=== PATIENT | male | born 1990 | race Caucasian/White ===

== ENCOUNTER 2022-01-24 23:57 | Emergency (ER) | payer MEDICAID ==
[~2022-01-24] VITALS: Ht 172.7 cm; Wt 77.0 kg
[2022-01-25] MEDS ORDERED: DIPHENHYDRAMINE 50MG/ML VIAL IM STA (00:23)
[2022-01-25] MEDS ORDERED: HALOPERIDOL LACTATE 5MG/ML VIAL IM STA (00:23)
[2022-01-25 00:37] LABS: BASOPHILS % 0.5 % (0.0-2.0); EOSINOPHILS % 1.3 % (0.0-5.0); HEMATOCRIT. 45.3 % (42.0-52.0); HEMOGLOBIN. 15.2 g/dL (14.0-18.0); LYMPHOCYTES % 27.2 % (20.0-50.0); MEAN CORPUSCULAR HEMOGLOBIN 28.7 pg (28.0-32.0); MEAN CORPUSCULAR VOLUME 85.8 fL (80.0-94.0); MEAN PLATELET VOLUME 8.6 fl (7.4-10.4); MONOCYTES % 5.9 % (2.0-8.0); NEUTROPHILS % 65.1 % (40.0-76.0); PLATELET 245 x1000/uL (130-400); RED BLOOD CELL COUNT 5.29 mill/uL (4.7-6.1); RED CELL DISTRIBUTION WIDTH 14.4 % (11.6-14.6)
[2022-01-25 00:49] LABS: CHLORIDE 109 mEq/L (98-107)
[2022-01-25 01:01] LABS: ETHANOL BLOOD 383 mg/dL
[2022-01-25 10:00] VITALS: BP 107/63
== END 2022-01-25 10:40 | disposition home or self-care (01) ==
LOC: ER 01-25 00:18
DX: F10.129 Alcohol abuse with intoxication, unspecified (principal); Y90.0 Blood alcohol level of less than 20 mg/100 ml
CPT/HCPCS: 36415; 70450; 80053; 80320; 85025; 93005; 96372; 99285; J1200; J1630; G0480